=== PATIENT | female | born 1945 | race Caucasian/White ===

== ENCOUNTER → 2020-08-18 14:56 | Outpatient (CLI) | payer OTHER, SELFPAY ==
[2020-08-18 15:52] LABS: Add Manual Diff / Slide Review NO; Basophils Absolute Auto 0 /uL (0-100); Basophils Percent Auto 0.7 % (0-2); Eosinophils Absolute Auto 200 /uL (0-450); Eosinophils Percent Auto 2.9 % (2-4); Hematocrit 42.9 % (36-46); Hemoglobin 14.6 g/dL (12.0-16.0); Lymphocytes Absolute Auto 1900 /uL (1100-4500); Lymphocytes Percent Auto 27.2 % (25-40); Mean Corpuscular Hemoglobin 29.2 PG (26-34); Mean Corpuscular Volume 85.9 fL (80-100); Monocytes Absolute Auto 600 /uL (0-900); Monocytes Percent Auto 9.1 % (3-14); Neutrophils Absolute Auto 4200 /uL (1500-7000); Neutrophils Percent Auto 60.1 % (50-75); Platelet Count 227 X10^3/uL (150-400); Red Blood Cell Count 4.99 X10^6/uL (4.0-5.2); Red Cell Distribution Width 12.7 % (11.6-14.8)
[2020-08-18 16:28] LABS: Alanine Aminotransferase 36 IU/L (<35); Albumin 4.5 g/dL (3.5-5.0); Albumin Globulin Ratio 1.6 (1.0-2.8); Alkaline Phosphatase 96 U/L (38-126); Aspartate Aminotransferase 39 IU/L (14-36); BUN Creatinine Ratio 31.1 (6-22); Blood Urea Nitrogen 23 mg/dL (7-17); Calcium 9.9 mg/dL (8.4-10.2); Carbon Dioxide 27 mmol/L (22-32); Chloride 104 mmol/L (98-107); Cholesterol 263 mg/dL (140-199); Estimated Glomerular Filt Rate > 60.0 mL/min (>60); Globulin 2.8 g/dL (1.7-4.1); Glucose 101 mg/dL (80-110); HDL Cholesterol 58 mg/dL (40-60); HEMOLYSIS < 15 (0-50); LDL Cholesterol Calculated 170 mg/dL (<100); Potassium 4.6 mmol/L (3.4-5.1); Sodium 137 mmol/L (137-145); Total Protein 7.3 g/dL (6.3-8.2); Triglycerides 176 mg/dL (35-150)
[2020-08-18 16:52] LABS: TSH w/ Reflex to FT4 2.05 uIU/mL (0.47-4.68)
[2020-08-21 21:36] LABS: QuantiFERON Mitogen Value 9.57 IU/mL (.); QuantiFERON Nil Value 0.19 IU/mL (.); QuantiFERON TB Gold Plus Negative (Negative); QuantiFERON TB1 Ag Value 0.36 IU/mL (.); QuantiFERON TB2 Ag Value 0.45 IU/mL (.)
== END ==
PROVIDERS: PCP Family Medicine; Referring Provider Family Medicine; Visit Provider Family Medicine
DX: E78.2 Mixed hyperlipidemia (principal); R00.2 Palpitations; E78.5 Hyperlipidemia, unspecified; G47.33 Obstructive sleep apnea (adult) (pediatric); M19.011 Primary osteoarthritis, right shoulder; Z02.1 Encounter for pre-employment examination
CPT/HCPCS: 36415; 80053; 80061; 84443; 85025; 86480

== ENCOUNTER → 2020-09-01 12:59 | Outpatient (CLI) | payer OTHER, SELFPAY ==
--- NOTE | 2020-09-29 11:01 | PM.CARDMON.1 ---
[employer] Report Referral & Results Date Patient Seen: 09/01/20 Requesting provider: Tobias Power Indication: Palpitations Duration of monitoring (days): 14 Diary information: There were 2 patient diary entries These to patient events were associated with (within 45 seconds) sinus rhythm only Data: Minimum heart rate identified was 47 beats per minute at 05:53 on 09/11/2020 Maximum sinus heart rate was 132 beats per minute at 17:09 on 09/05/2020 Maximum overall heart rate was 187 beats per minute at 12:01 on 09/08/2020 during a 6 beat run of SVT Less than 1% of identified beats were ventricular or supraventricular ectopic in origin, which would classify them as rare. There were 22 runs of SVT the fastest being a 6 beat run noted above, the longest lasting 14 beats at a rate of 114 beats per minute which suggest more atrial tachycardia rather than true SVT Impression: Essentially normal 14 day ham stringer showing rare PVCs rare PACs and very rare very brief runs of SVT Patient reported symptoms are not connect with any dysrhythmia of any sort based on this study
== END ==
PROVIDERS: PCP Family Medicine; Referring Provider Family Medicine; Visit Provider Family Medicine
DX: R00.2 Palpitations (principal)
CPT/HCPCS: 93246; 93248

== ENCOUNTER → 2021-03-07 09:06 | Outpatient (CLI) | payer OTHER, SELFPAY ==
[2021-03-07 11:05] LABS: Alanine Aminotransferase 30 IU/L (<35); Albumin Globulin Ratio 1.5 (1.0-2.8); Alkaline Phosphatase 107 U/L (38-126); Aspartate Aminotransferase 33 IU/L (14-36); BUN Creatinine Ratio 24.3 (6-22); Bilirubin Total 0.9 mg/dL (0.2-1.3); Blood Urea Nitrogen 18 mg/dL (7-17); Calcium 9.2 mg/dL (8.4-10.2); Carbon Dioxide 29 mmol/L (22-32); Chloride 104 mmol/L (98-107); Cholesterol 212 mg/dL (140-199); Estimated Glomerular Filt Rate > 60.0 mL/min (>60); Globulin 2.6 g/dL (1.7-4.1); Glucose 113 mg/dL (80-110); HDL Cholesterol 54 mg/dL (40-60); HEMOLYSIS < 15 (0-50); LDL Cholesterol Calculated 138 mg/dL (<100); Potassium 4.7 mmol/L (3.4-5.1); Sodium 139 mmol/L (137-145); Total Protein 6.6 g/dL (6.3-8.2); Triglycerides 100 mg/dL (35-150)
== END ==
PROVIDERS: PCP Family Medicine; Referring Provider Family Medicine; Visit Provider Family Medicine
DX: E78.2 Mixed hyperlipidemia (principal); R74.8 Abnormal levels of other serum enzymes
CPT/HCPCS: 36415; 80053; 80061

== ENCOUNTER → 2021-04-21 16:34 | Outpatient (CLI) | payer OTHER, SELFPAY ==
[2021-04-21 17:26] LABS: COVID19 -Nasal RAPID Negative (Negative)
== END ==
PROVIDERS: PCP Family Medicine; Visit Provider Nurse Practitioner
DX: Z20.822 Contact with and (suspected) exposure to COVID-19 (principal)
CPT/HCPCS: 87635

== ENCOUNTER → 2022-01-09 14:50 | Outpatient (CLI) | payer OTHER, SELFPAY ==
[2022-01-09 15:55] LABS: Add Manual Diff / Slide Review NO; Basophils Absolute Auto 0 /uL (0-100); Basophils Percent Auto 0.5 % (0-2); Eosinophils Absolute Auto 100 /uL (0-450); Eosinophils Percent Auto 1.4 % (2-4); Hematocrit 40.1 % (36-46); Hemoglobin 13.8 g/dL (12.0-16.0); Lymphocytes Absolute Auto 1900 /uL (1100-4500); Lymphocytes Percent Auto 26.1 % (25-40); Mean Corpuscular HGB Conc 34.5 % (30-36); Mean Corpuscular Hemoglobin 28.9 PG (26-34); Mean Corpuscular Volume 83.8 fL (80-100); Monocytes Absolute Auto 600 /uL (0-900); Monocytes Percent Auto 8.6 % (3-14); Neutrophils Absolute Auto 4500 /uL (1500-7000); Neutrophils Percent Auto 63.4 % (50-75); Platelet Count 226 X10^3/uL (150-400); Red Blood Cell Count 4.78 X10^6/uL (4.0-5.2); Red Cell Distribution Width 13.9 % (11.6-14.8); White Blood Cell Count 7.1 X10^3/uL (4.5-11.0)
[2022-01-09 16:22] LABS: Alanine Aminotransferase 23 IU/L (<35); Albumin 4.3 g/dL (3.5-5.0); Albumin Globulin Ratio 1.5 (1.0-2.8); Alkaline Phosphatase 85 U/L (38-126); Aspartate Aminotransferase 31 IU/L (14-36); BUN Creatinine Ratio 17.3 (6-22); Bilirubin Total 0.9 mg/dL (0.2-1.3); Blood Urea Nitrogen 13 mg/dL (7-17); Calcium 8.8 mg/dL (8.4-10.2); Carbon Dioxide 26 mmol/L (22-32); Chloride 105 mmol/L (98-107); Cholesterol 215 mg/dL (140-199); Estimated Glomerular Filt Rate > 60 mL/min (>60); Globulin 2.8 g/dL (1.7-4.1); Glucose 113 mg/dL (80-110); HDL Cholesterol 49 mg/dL (40-60); HEMOLYSIS < 15 (0-50); LDL Cholesterol Calculated 127 mg/dL (<100); Potassium 3.9 mmol/L (3.4-5.1); Sodium 139 mmol/L (137-145); Total Protein 7.1 g/dL (6.3-8.2); Triglycerides 196 mg/dL (35-150)
[2022-01-09 16:56] LABS: TSH w/ Reflex to FT4 2.13 uIU/mL (0.47-4.68)
== END ==
PROVIDERS: PCP Family Medicine; Referring Provider Family Medicine; Visit Provider Family Medicine
DX: Z13.820 Encounter for screening for osteoporosis (principal); M81.0 Age-related osteoporosis without current pathological fracture; Z78.0 Asymptomatic menopausal state; E78.5 Hyperlipidemia, unspecified; G47.33 Obstructive sleep apnea (adult) (pediatric); R73.9 Hyperglycemia, unspecified; E78.2 Mixed hyperlipidemia; R74.8 Abnormal levels of other serum enzymes
CPT/HCPCS: 36415; 77080; 80053; 80061; 84443; 85025

== ENCOUNTER → 2022-03-29 13:57 | Outpatient (CLI) | payer OTHER, SELFPAY ==
--- NOTE | 2022-03-29 | DI.NM.S_ITS ---
PROCEDURE: NM EXERCISE TREADMILL NON NUC COMPARISON: None. INDICATIONS: Family history of ischemic heart disease FINDINGS: Rest ECG sinus rhythm. Romie protocol 6:00, maximum heart rate 154 bpm (105% peak predicted), maximum blood pressure 222/70, 7.0 METS, SHANIQUE -11%. Stress ECG sinus tachycardia, no ST segment changes, occasional PACs and PVCs noted in recovery. The patient did not complain of chest pain during exercise however did report 3 out of 10 chest pain approximately 4 minutes into recovery which lasted 6 minutes. IMPRESSION: No evidence of exercise-induced ischemia. Rare PACs and PVCs in recovery. Hypertensive response to exercise. Good exercise capacity. Patient reported post exercise chest discomfort. Dictated by: Ana Contreras D.O. on 04/02/2022 at 16:57 Approved by: Ana Contreras D.O. on 04/02/2022 at 17:02
[2022-03-29 14:36] LABS: COVID19 -Nasal RAPID Negative (Negative)
== END ==
PROVIDERS: PCP Family Medicine; Referring Provider Internal Medicine Cardiovascular Disease; Visit Provider Internal Medicine Cardiovascular Disease
DX: R07.89 Other chest pain; Z82.49 Family history of ischemic heart disease and other diseases of the circulatory system; E78.5 Hyperlipidemia, unspecified; Z20.822 Contact with and (suspected) exposure to COVID-19; Z13.6 Encounter for screening for cardiovascular disorders
CPT/HCPCS: 87635; 93017

== ENCOUNTER → 2022-05-24 15:37 | Outpatient (CLI) | payer OTHER, SELFPAY ==
[2022-05-24 17:37] LABS: Cholesterol 225 mg/dL (140-199); HDL Cholesterol 51 mg/dL (40-60); LDL Cholesterol Calculated 147 mg/dL (<100); Triglycerides 136 mg/dL (35-150)
== END ==
PROVIDERS: PCP Family Medicine; Referring Provider Internal Medicine Cardiovascular Disease; Visit Provider Internal Medicine Cardiovascular Disease
DX: E78.5 Hyperlipidemia, unspecified (principal)
CPT/HCPCS: 36415; 80061

== ENCOUNTER → 2023-04-30 09:48 | Outpatient (CLI) | payer OTHER, SELFPAY ==
[2023-04-30 11:15] LABS: Add Manual Diff / Slide Review NO; Basophils Absolute Auto 0 /uL (0-100); Basophils Percent Auto 0.8 % (0-2); Eosinophils Absolute Auto 100 /uL (0-450); Eosinophils Percent Auto 1.9 % (2-4); Hematocrit 41.5 % (36-46); Lymphocytes Absolute Auto 1500 /uL (1100-4500); Lymphocytes Percent Auto 26.4 % (25-40); Mean Corpuscular HGB Conc 33.8 % (30-36); Mean Corpuscular Hemoglobin 28.8 PG (26-34); Mean Corpuscular Volume 85.2 fL (80-100); Monocytes Absolute Auto 500 /uL (0-900); Monocytes Percent Auto 7.8 % (3-14); Neutrophils Absolute Auto 3700 /uL (1500-7000); Neutrophils Percent Auto 63.1 % (50-75); Platelet Count 230 X10^3/uL (150-400); Red Blood Cell Count 4.87 X10^6/uL (4.0-5.2); Red Cell Distribution Width 12.6 % (11.6-14.8); White Blood Cell Count 5.8 X10^3/uL (4.5-11.0)
[2023-04-30 11:38] LABS: Alanine Aminotransferase 28 IU/L (<35); Albumin 4.1 g/dL (3.5-5.0); Albumin Globulin Ratio 1.3 (1.0-2.8); Alkaline Phosphatase 90 U/L (38-126); Aspartate Aminotransferase 29 IU/L (14-36); BUN Creatinine Ratio 27.3 (6-22); Bilirubin Total 1.2 mg/dL (0.2-1.3); Blood Urea Nitrogen 18 mg/dL (7-17); Calcium 9.5 mg/dL (8.4-10.2); Carbon Dioxide 25 mmol/L (22-32); Chloride 105 mmol/L (98-107); Cholesterol 146 mg/dL (140-199); Estimated Glomerular Filt Rate > 60 mL/min (>60); Globulin 3.1 g/dL (1.7-4.1); Glucose 129 mg/dL (80-110); HDL Cholesterol 45 mg/dL (40-60); HEMOLYSIS < 15 (0-50); LDL Cholesterol Calculated 83 mg/dL (<100); Potassium 4.2 mmol/L (3.4-5.1); Sodium 139 mmol/L (137-145); Total Protein 7.2 g/dL (6.3-8.2); Triglycerides 92 mg/dL (35-150)
[2023-04-30 12:17] LABS: TSH w/ Reflex to FT4 2.07 uIU/mL (0.47-4.68)
== END ==
PROVIDERS: PCP Family Medicine; Referring Provider Family Medicine; Visit Provider Family Medicine
DX: R73.9 Hyperglycemia, unspecified (principal); E78.2 Mixed hyperlipidemia; D48.5 Neoplasm of uncertain behavior of skin; Z78.9 Other specified health status
CPT/HCPCS: 36415; 80053; 80061; 83036; 84443; 85025

== ENCOUNTER → 2023-07-12 10:05 | Outpatient (CLI) | payer OTHER, SELFPAY ==
--- NOTE | 2023-07-12 10:06 | DI.CT.S_ITS ---
PROCEDURE: CT SINUS SCREEN WO CON INDICATIONS: Chronic pansinusitis TECHNIQUE: Noncontrast 3.0 mm axial images acquired from the frontal sinuses to the mid-sella, with coronal and sagittal reformats. For radiation dose reduction, the following was used: automated exposure control, adjustment of mA and/or kV according to patient size. COMPARISON: None. FINDINGS: Image quality: Excellent. Maxillary Sinuses: No bony remodeling or destruction. Mild mucosal thickening can be seen within the inferior maxillary sinuses. Ethmoid Air Cells: No bony remodeling or destruction. Sinuses are clear. Sphenoid Sinuses: No bony remodeling or destruction. Sinuses are clear. Frontal Sinuses: No bony remodeling or destruction. Sinuses are clear. Ostiomeatal Complexes: Ostiomeatal complexes are patent, yet they are constitutionally narrowed. No Don cells. Miscellaneous: Visualized intra-orbital contents are normal. No kristin bullosa or paradoxical turbinate curvature. No nasal septal deviation. IMPRESSION: Mild focal mucosal thickening seen within the inferior maxillary sinuses. Constitutionally narrowed ostiomeatal complexes. Dictated by: Ildefonso Duran M.D. on 07/12/2023 at 11:02 Approved by: Ildefonso Duran M.D. on 07/12/2023 at 11:03
== END ==
LOC: CT 10:05
PROVIDERS: PCP Family Medicine; Referring Provider Otolaryngology; Visit Provider Otolaryngology
DX: J32.4 Chronic pansinusitis (principal); R09.82 Postnasal drip
CPT/HCPCS: 70486

== ENCOUNTER 2024-03-21 15:45 | Emergency (ER) | payer OTHER, SELFPAY ==
[2024-03-21 15:48] VITALS: BP 185/81; PULSE 70; RESP 16; TEMP 36.7; O2SAT 98; BMI 28.8
--- NOTE | 2024-03-21 16:54 | DI.RAD.S_ITS ---
PROCEDURE: XR HIP W PEL IF DONE LT 2V INDICATIONS: L hip pain TECHNIQUE: 3 views of the hip were acquired. COMPARISON: None. FINDINGS: Bones: No fractures or dislocations. No suspicious bony lesions. The visualized pelvic ring appears intact. Soft tissues: No suspicious soft tissue calcifications or masses. IMPRESSION: Moderate bilateral hip joint space narrowing. No fracture Approved by: Julio C Mcclain M.D. on 03/21/2024 at 16:46
--- NOTE | 2024-03-21 16:54 | DI.RAD.S_ITS ---
PROCEDURE: XR LUMBAR SPINE 2-3V INDICATIONS: Lumbar Radiculopathy TECHNIQUE: 3 views of the lumbar spine were acquired. COMPARISON: None. FINDINGS: Bones: 5 [id number] vertebrae are present. There is normal bony alignment. No vertebral body compression fractures. No suspicious bony lesions. Convex left lumbar scoliosis. Generalized decreased osseous mineralization noted. Disc space narrowing and hypertrophic facet joints and lower lumbar spine. Atherosclerotic calcification in the abdominal aorta noted without evidence of aneurysm. Soft tissues: Overlying bowel gas pattern is normal. No suspicious soft tissue calcifications. IMPRESSION: Degenerative disc disease, arthropathy and osteopenia. No fracture or traumatic malalignment. Approved by: Julio C Mcclain M.D. on 03/21/2024 at 16:47
[2024-03-21] MEDS: KETOROLAC 30 MG/ML VIAL IM (17:06)
[2024-03-21 17:37] LABS: Add Manual Diff / Slide Review NO; Basophils Absolute Auto 0 /uL (0-100); Basophils Percent Auto 0.3 % (0-2); Eosinophils Absolute Auto 100 /uL (0-450); Hematocrit 44.4 % (36-46); Hemoglobin 14.8 g/dL (12.0-16.0); Lymphocytes Absolute Auto 2100 /uL (1100-4500); Lymphocytes Percent Auto 21.7 % (25-40); Mean Corpuscular HGB Conc 33.3 % (30-36); Mean Corpuscular Hemoglobin 28.8 PG (26-34); Mean Corpuscular Volume 86.5 fL (80-100); Monocytes Absolute Auto 700 /uL (0-900); Monocytes Percent Auto 7.5 % (3-14); Neutrophils Absolute Auto 6700 /uL (1500-7000); Neutrophils Percent Auto 69.5 % (50-75); Platelet Count 242 X10^3/uL (150-400); Red Blood Cell Count 5.13 X10^6/uL (4.0-5.2); Red Cell Distribution Width 13.4 % (11.6-14.8); White Blood Cell Count 9.6 X10^3/uL (4.5-11.0)
[2024-03-21 17:49] LABS: Alanine Aminotransferase 47 IU/L (<35); Albumin 4.6 g/dL (3.5-5.0); Albumin Globulin Ratio 1.5 (1.0-2.8); Alkaline Phosphatase 104 U/L (38-126); Aspartate Aminotransferase 39 IU/L (14-36); BUN Creatinine Ratio 21.2 (6-22); Bilirubin Total 1.4 mg/dL (0.2-1.3); Blood Urea Nitrogen 18 mg/dL (7-17); Calcium 9.3 mg/dL (8.4-10.2); Carbon Dioxide 26 mmol/L (22-32); Chloride 105 mmol/L (98-107); Creatine Kinase 92 U/L (30-135); Estimated Glomerular Filt Rate > 60 mL/min (>60); Glucose 107 mg/dL (80-110); HEMOLYSIS < 15 (0-50); Potassium 4.6 mmol/L (3.4-5.1); Sodium 139 mmol/L (137-145); Total Protein 7.6 g/dL (6.3-8.2)
--- NOTE | 2024-03-21 17:51 | PC.NURSE ---
Pt endorses transient numbness in bilateral feet. Denies numbness currently.
--- NOTE | 2024-03-21 18:17 | ED.EXTPRO ---
HPI - Extremity Problem <Robin White PA-C - Last Filed: 03/21/24 18:35> General Chief complaint: Extremity Problem,Nontraumatic Stated complaint: left leg pain, cant stand Time Seen by Provider: 03/21/24 16:10 Source: patient Mode of arrival: Wheelchair History of Present Illness HPI Narrative: This patient is a 78-year-old female that over the last 2 weeks has been experiencing left hip discomfort. She was apparently in her car today when the pain worsened and felt like a muscle spasm. Patient states that she had to drive to a friend's house to help her get out of the car. The patient has not seen her PCP for today's chief complaint. She denies night sweats, fever, chills, dysuria, bowel or bladder incontinence, blunt force trauma, falls worsening pain. Patient also denies chest pain and shortness of breath. No medications or other treatments have been tried for this. She has not scheduled an appointment to see her PCP for today's complaint. Patient states that she, ?can not stand? however, she actually can stand there is just increased pain with weight-bearing over the posterior aspect of the left thigh. Related Data Home Medications Medication Instructions Recorded Confirmed ResMed AirSense 11 Auto 03/15/22 05/06/23 Previous Rx's Medication Instructions Recorded diazepam 2 mg tablet (Valium) 2 mg PO BID PRN anxiety #10 tabs 05/06/23 ezetimibe 10 mg tablet (Zetia) 10 mg PO DAILY #90 tabs 05/16/23 hydrocodone 5 mg-acetaminophen 325 1 tab PO Q8H PRN pain #15 tabs 03/21/24 mg tablet meloxicam 7.5 mg tablet 7.5 mg PO BID PRN pain #20 tabs 03/21/24 tizanidine 4 mg tablet 4 mg PO Q8H PRN muscle spasticity 03/21/24 #20 tabs Allergies Allergy/AdvReac Type Severity Reaction Status Date / Time atorvastatin AdvReac Intermediate Muscle Pain Verified 03/21/24 15:48 rosuvastatin AdvReac Intermediate constipatio Verified 03/21/24 15:48 n Review of Systems <Robin White PA-C - Last Filed: 03/21/24 18:35> Review of Systems Narrative: General: See HPI MSK: See HPI All other review of systems have been reviewed and are ultimately negative unless otherwise stated in the HPI Patient History <Robin White PA-C - Last Filed: 03/21/24 18:35> Medical History Trigger finger, right Acute bronchitis Hyperglycemia Hyperlipidemia Obstructive sleep apnea Bilateral plantar fasciitis Primary osteoarthritis, right shoulder Social History Smoking Status: Never smoker Smoking Status: Never smoker alcohol intake frequency: a few times a week Substance Use Type: does not use Exam <Robin White PA-C - Last Filed: 03/21/24 18:35> Initial Vital Signs Initial Vital Signs: Vital Signs Temperature 98.0 F 03/21/24 15:48 Pulse Rate 70 03/21/24 15:48 Respiratory Rate 16 03/21/24 15:48 Blood Pressure 185/81 H 03/21/24 15:48 Pulse Oximetry 98 03/21/24 15:48 Oxygen Delivery Method Room Air 03/21/24 15:48 Const General: cooperative, healthy appearing, comfortable, well developed and well groomed Orientation: Orientation [facility] Head: normal to inspection, normocephalic and atraumatic Ears: hearing grossly normal bilaterally and external ears normal Nose: external nose normal and nares normal Eyes General: Yes appearance normal, both eyes and all related structures Neck Neck: normal visual inspection, full ROM and no meningeal signs Resp Effort & Inspection: normal respiratory effort and able to speak in complete sentences Cardio Rate: regular rate Rhythm: regular rhythm Heart Sounds: S1 normal and S2 normal Back/Spine/Pelvis Other: Patient has tense paralumbar musculature noted at L4-5 and S1. She has no SI joint tenderness noted. She has a positive straight leg raise of the left lower extremity. She has no tenderness to palpation over the left greater trochanteric bursa. There is tenderness to palpation over the left posterior thigh with spasm. Skin General: no rashes or lesions noted, elasticity normal and turgor normal Neuro General: patient alert, patient awake, patient oriented x3, moves all extremities and deep tendon reflexes 2+ bilaterally Extrem General: normal to inspection, full ROM, capillary refill normal and normal exam except as noted Psych Appearance: grossly normal and well kempt <Briseyda Downing DO - Last Filed: 03/22/24 08:00> Initial Vital Signs Initial Vital Signs: Vital Signs Temperature 98.0 F 03/21/24 15:48 Pulse Rate 70 03/21/24 15:48 Respiratory Rate 16 03/21/24 15:48 Blood Pressure 185/81 H 03/21/24 15:48 Pulse Oximetry 98 03/21/24 15:48 Oxygen Delivery Method Room Air 03/21/24 15:48 Course <Robin White PA-C - Last Filed: 03/21/24 18:35> Course Course Narrative: Patient seen and examined. She was given Toradol 30 mg IM. Labs were ordered to rule out any other etiologies. Her CBC, CMP, CK-MB were unremarkable. I do not believe this is an infectious process such as a deep space abscess, necrotizing fasciitis or cauda equina syndrome. The patient denies saddle anesthesia as well as bowel or bladder incontinence. This has been ongoing for approximately 2 weeks and worsened today. She has not seen her PCP for today's chief complaint. So do not believe this is rhabdomyolysis. The patient states that she is very active. She is neurologically distally intact. The x-rays of the L-spine revealed degenerative disc disease in the left hip/pelvis x-ray series revealed narrowing of the hip joints. This was according to the radiologist. The patient will be prescribed a short course of [place], tizanidine as well as meloxicam in which she will receive 1 dose of tizanidine prior to discharge. I offered the patient a Social Work consult in which she declined. I have advised the patient to follow up with her PCP in 2 days as she may require outpatient physical therapy and/or an MRI of the L-spine and possible hip. Patient understands the treatment plan. There are no additional questions at the time of discharge and she will follow up as requested. As always, patient was advised to return here immediately if worse. Orders Ordered: Discontinued Medications Ketorolac Tromethamine (Ketorolac 30 Mg/Ml Vial) 30 mg IM NOW ONE Stop: 03/21/24 16:55 Last Admin: 03/21/24 17:06 Dose: 30 mg Documented By: SPF Tizanidine HCl (Tizanidine 4 Mg Tablet) 4 mg PO NOW ONE Stop: 03/21/24 18:12 Last Admin: 03/21/24 18:39 Dose: 4 mg Documented By: SPF Vital Signs Vital signs: Vital Signs - 8 hr 03/21/24 15:48 Temperature 98.0 F Pulse Rate 70 Respiratory Rate 16 Blood Pressure 185/81 H Pulse Oximetry 98 Oxygen Delivery Method Room Air <Briseyda Downing DO - Last Filed: 03/22/24 08:00> Orders Ordered: Discontinued Medications Ketorolac Tromethamine (Ketorolac 30 Mg/Ml Vial) 30 mg IM NOW ONE Stop: 03/21/24 16:55 Last Admin: 03/21/24 17:06 Dose: 30 mg Documented By: SPF Tizanidine HCl (Tizanidine 4 Mg Tablet) 4 mg PO NOW ONE Stop: 03/21/24 18:12 Last Admin: 03/21/24 18:39 Dose: 4 mg Documented By: SPF Vital Signs Vital signs: Vital Signs - 8 hr 03/21/24 15:48 Temperature 98.0 F Pulse Rate 70 Respiratory Rate 16 Blood Pressure 185/81 H Pulse Oximetry 98 Oxygen Delivery Method Room Air MDM - Extremity (Nontraumatic) <Robin White PA-C - Last Filed: 03/21/24 18:35> Differential Diagnosis Differential diagnosis: Likely other (See above) Medical Records Attestation: I reviewed the patient's medical records. Lab Data Attestation: I reviewed the patient's lab results. 03/21/24 17:25 03/21/24 17:25 Labs: Lab Results 03/21/24 Range/Units 17:25 WBC 9.6 (4.5-11.0) X10^3/uL RBC 5.13 (4.0-5.2) X10^6/uL Hgb 14.8 (12.0-16.0) g/dL Hct 44.4 (36-46) % MCV 86.5 (80-100) fL MCH 28.8 (26-34) PG MCHC 33.3 (30-36) % RDW 13.4 (11.6-14.8) % Plt Count 242 (150-400) X10^3/uL Neut % (Auto) 69.5 (50-75) % Lymph % (Auto) 21.7 L (25-40) % [place] % (Auto) 7.5 (3-14) % Eos % (Auto) 1.0 L (2-4) % Baso % (Auto) 0.3 (0-2) % Neut # (Auto) 6700 (3476-0087) /uL Lymph # (Auto) 2100 (9316-3531) /uL [place] # (Auto) 700 (0-900) /uL Eos # (Auto) 100 (0-450) /uL Baso # (Auto) 0 (0-100) /uL Sodium 139 (137-145) mmol/L Potassium 4.6 (3.4-5.1) mmol/L Chloride 105 (98-107) mmol/L Carbon Dioxide 26 (22-32) mmol/L BUN 18 H (7-17) mg/dL Creatinine 0.85 (0.52-1.04) mg/dL Estimated GFR > 60 (>60) mL/min BUN/Creatinine Ratio 21.2 (6-22) Glucose 107 (80-110) mg/dL Calcium 9.3 (8.4-10.2) mg/dL Total Bilirubin 1.4 H (0.2-1.3) mg/dL AST 39 H (14-36) IU/L ALT 47 H (<35) IU/L Alkaline Phosphatase 104 (38-126) U/L Total Creatine Kinase 92 (30-135) U/L Total Protein 7.6 (6.3-8.2) g/dL Albumin 4.6 (3.5-5.0) g/dL Globulin 3.0 (1.7-4.1) g/dL Albumin/Globulin Ratio 1.5 (1.0-2.8) <Briseyda Downing, DO - Last Filed: 03/22/24 08:00> Lab Data Labs: Lab Results 03/21/24 Range/Units 17:25 WBC 9.6 (4.5-11.0) X10^3/uL RBC 5.13 (4.0-5.2) X10^6/uL Hgb 14.8 (12.0-16.0) g/dL Hct 44.4 (36-46) % MCV 86.5 (80-100) fL MCH 28.8 (26-34) PG MCHC 33.3 (30-36) % RDW 13.4 (11.6-14.8) % Plt Count 242 (150-400) X10^3/uL Neut % (Auto) 69.5 (50-75) % Lymph % (Auto) 21.7 L (25-40) % [place] % (Auto) 7.5 (3-14) % Eos % (Auto) 1.0 L (2-4) % Baso % (Auto) 0.3 (0-2) % Neut # (Auto) 6700 (4936-3505) /uL Lymph # (Auto) 2100 (6843-6371) /uL [place] # (Auto) 700 (0-900) /uL Eos # (Auto) 100 (0-450) /uL Baso # (Auto) 0 (0-100) /uL Sodium 139 (137-145) mmol/L Potassium 4.6 (3.4-5.1) mmol/L Chloride 105 (98-107) mmol/L Carbon Dioxide 26 (22-32) mmol/L BUN 18 H (7-17) mg/dL Creatinine 0.85 (0.52-1.04) mg/dL Estimated GFR > 60 (>60) mL/min BUN/Creatinine Ratio 21.2 (6-22) Glucose 107 (80-110) mg/dL Calcium 9.3 (8.4-10.2) mg/dL Total Bilirubin 1.4 H (0.2-1.3) mg/dL AST 39 H (14-36) IU/L ALT 47 H (<35) IU/L Alkaline Phosphatase 104 (38-126) U/L Total Creatine Kinase 92 (30-135) U/L Total Protein 7.6 (6.3-8.2) g/dL Albumin 4.6 (3.5-5.0) g/dL Globulin 3.0 (1.7-4.1) g/dL Albumin/Globulin Ratio 1.5 (1.0-2.8) Discharge Plan Departure Patient Disposition: Home Clinical Impression: Acute left lumbar radiculopathy Hip osteoarthritis Qualifiers: Osteoarthritis type: primary Laterality: bilateral Qualified Code(s): M16.0 - Bilateral primary osteoarthritis of hip Instructions: Lumbar Radiculopathy, DI for Hip Pain Activity Restrictions/Additional Instructions: Start the medications today as prescribed Apply moist heat to the affected areas 10 minutes at a time 5 times a day Follow up with your PCP on Saturday to discuss your concerns for today's ER visit You will likely require physical therapy as well as an outpatient MRI Return here for any new, emergent concerns or if you worsen in any way Prescriptions: New tizanidine 4 mg tablet 4 mg PO Q8H PRN (Reason: muscle spasticity) Qty: 20 0RF hydrocodone-acetaminophen 5-325 mg tablet 1 tab PO Q8H PRN (Reason: pain) Qty: 15 0RF meloxicam 7.5 mg tablet 7.5 mg PO BID PRN (Reason: pain) Qty: 20 0RF No Action ezetimibe [Zetia] 10 mg tablet 10 mg PO DAILY Qty: 90 3RF diazepam [Valium] 2 mg tablet 2 mg PO BID PRN (Reason: anxiety) Qty: 10 0RF (DME) ResMed AirSense 11 Auto See Rx Instructions .Route .MEDSUPPLY Rx Instructions: Pressure: 6-10 DME: [employer] Set up: 2.2.22 Referrals: Tobias Power MD [Primary Care Provider] - Stand Alone Forms: Patient Portal/API ED Sign-out <Briseyda Downing DO - Last Filed: 03/22/24 08:00> Cosign ED Attending Cosjonathonature Attestation: I was available for consultation.
[2024-03-21] MEDS: TIZANIDINE 4 MG TABLET PO (18:39)
[2024-03-21 18:57] VITALS: BP 167/72; PULSE 63; RESP 18; O2SAT 98
== END 2024-03-21 18:58 | disposition home or self-care (01) ==
PROVIDERS: Emergency Provider Physician Assistant; PCP Family Medicine
DX: M54.16 Radiculopathy, lumbar region (principal); M16.0 Bilateral primary osteoarthritis of hip
CPT/HCPCS: 72100; 73502; 80053; 82550; 85025; 96372; 99284; J1885

== ENCOUNTER → 2024-03-25 14:14 | Outpatient (CLI) | payer OTHER, SELFPAY ==
[2024-03-25 16:26] LABS: Hemoglobin A1C% w Est Avg Glu 6.3 % (4.0-6.0)
== END ==
PROVIDERS: PCP Family Medicine; Referring Provider Physician Assistant; Visit Provider Physician Assistant
DX: M16.9 Osteoarthritis of hip, unspecified (principal); M54.16 Radiculopathy, lumbar region
CPT/HCPCS: 36415; 83036

== ENCOUNTER → 2024-03-30 14:49 | Outpatient (CLI) | payer OTHER, SELFPAY ==
--- NOTE | 2024-03-30 14:50 | DI.RAD.S_ITS ---
PROCEDURE: XR KNEE LT 3V INDICATIONS: left knee pain >2 weeks TECHNIQUE: 3 views of the knee were acquired. COMPARISON: None. FINDINGS: Bones: There are no osseous abnormalities. Joints: The tibialfemoral and patellofemoral joints show mild degenerative change. There is chondrocalcinosis of the menisci. No definite effusion. Soft tissues: Normal IMPRESSION: Mild degeneration. Chondrocalcinosis of the menisci.. Dictated by: Oli Edwards M.D. on 03/31/2024 at 10:50 Approved by: Oli Edwards M.D. on 03/31/2024 at 10:51
== END ==
PROVIDERS: PCP Family Medicine; Referring Provider Family Medicine; Visit Provider Family Medicine
DX: M11.262 Other chondrocalcinosis, left knee (principal); M25.562 Pain in left knee; M16.0 Bilateral primary osteoarthritis of hip; M54.16 Radiculopathy, lumbar region
CPT/HCPCS: 73562

== ENCOUNTER → 2024-05-06 15:48 | Outpatient (CLI) | payer OTHER, SELFPAY ==
--- NOTE | 2024-05-11 14:29 | DIET.OUTPTC ---
Dietary Outpatient Consultation Note Consultation Date: 05/06/2024 Assessment: 78 y F referred to dietitian for pre-diabetes R73.03. Elle has tried various weight loss eating styles in past - waxes and wanes in diet and dietary patterns, with most recent being inter. fasting that resulted in 13 lb weight loss. However, over this summer, was with her family and noticed regain of 8 lb weight associated with change in eating style i.e going out to eat more. Has maintained a ~2-4% loss. Wants to continue to lose weight to feel more comfortable. Is interested in short term weight loss medication. Encouraged pt to discuss with PCP at next appt in 1 month to find best option. Reports has had preDM for many years. Most recent A1c% is 6.3. Pt wants to find a balance between sustainable eating for health to reduce cardiovascular risk factors and maintaining a good quality of life. Notes has some constipation, but has BM within 3 days. Reports has tried everything to alleviate constipation with no success - including fiber, movement, fiber supplement, laxative, and fluid. Diet recall: various day by day B-/ pear and muffin L-cheese and turkey sandwich D-homemade chicken noodle soup Ht: 5 ft 6 in Wt: 184 lb BMI: 29.7 UBW: 187 lb on 05/06/23 Nutrition Diagnosis: Nutrition related knowledge deficit r/t needing eating reccs for preDM aeb pt assessment Interventions: Discussed the following topics and provided appropriate handouts -Realistic weight loss goal for preventing/delaying diabetes and cardiovascular health - 5-7% -Healthy BMI for age -Reviewed relevant labs and meanings -CHO portions, CHO consistent style of eating, pairing CHO, foods with CHO -Choosing balanced meals and portion sizing when out to eat -Fiber and adequate intake and sources -Intuitive eating Goals: -When out to eat, 3 serving CHO at meal -Split dessert portions -21 g fiber Monitoring/Evaluations: A1c Electronically Signed by: Mirian Unger 05/11/24 14:29 Clinical Dietitian [address] [id number]
== END ==
PROVIDERS: PCP Family Medicine; Referring Provider Family Medicine
DX: R73.03 Prediabetes (principal); Z71.3 Dietary counseling and surveillance; Z68.29 Body mass index [BMI] 29.0-29.9, adult
CPT/HCPCS: 97802

== ENCOUNTER 2024-09-02 09:17 | Emergency (ER) | payer MEDICARE, SELFPAY ==
[2024-09-02 09:21] VITALS: BP 210/85; PULSE 73; RESP 14; TEMP 36.6; O2SAT 97; BMI 29.8
[2024-09-02 09:27] VITALS: BP 201/83
[2024-09-02 09:30] VITALS: BP 167/73
--- NOTE | 2024-09-02 09:55 | ED_ITS ---
HPI - Skin/Abscess/Foreign Bdy General Chief complaint: Skin/Abscess/Foreign Body Stated complaint: rash all over body Time Seen by Provider: 09/02/24 09:46 Source: patient Mode of arrival: Ambulatory Limitations: no limitations History of Present Illness HPI narrative: Patient here for itchy rash on her face chest abdomen bilateral legs and forearms. None on the back. No tongue swelling the no trouble breathing no throat tightening. Patient denies denies any new products food drugs medications soaps detergents clothing. Patient has been on the same cholesterol medication for the past 1 year. No recent illness fever chills cough cold or congestion. Related Data Home Medications Medication Instructions Recorded Confirmed ResMed AirSense 11 Auto 03/15/22 05/28/24 Previous Rx's Medication Instructions Recorded ezetimibe 10 mg tablet (Zetia) 10 mg PO DAILY #90 tabs 06/01/24 diphenhydramine HCl 25 mg capsule 25 mg PO TID PRN allergic reaction 09/02/24 #20 caps famotidine 20 mg tablet 20 mg PO BID #14 tabs 09/02/24 methylprednisolone 4 mg tablets in See Rx Instructions PO .COMPLEX 09/02/24 a dose pack (Medrol (Antoine)) #21 ea Allergies Allergy/AdvReac Type Severity Reaction Status Date / Time atorvastatin AdvReac Intermediate Muscle Pain Verified 09/02/24 09:28 rosuvastatin AdvReac Intermediate constipatio Verified 09/02/24 09:28 n Review of Systems Review of Systems Narrative: GENERAL: Negative chills, fatigue, malaise, fever, sweats. HEENT: Negative sinus pain, ear pain, sore throat RESPIRATORY: Negative dyspnea, cough CARDIOVASCULAR: Negative chest pain, palpitations GASTROINTESTINAL: Negative vomiting, nausea, abdominal pain : Negative dysuria, frequency, hematuria MUSCULOSKELETAL: Negative muscle or bony pain SKIN: Positive rash, skin lesions NEUROLOGIC: Negative weakness, numbness ROS Unobtainable: All systems reviewed & are unremarkable except as noted in HPI and below Patient History Medical History Trigger finger, right Acute bronchitis Hyperglycemia Hyperlipidemia Obstructive sleep apnea Bilateral plantar fasciitis Primary osteoarthritis, right shoulder Social History Smoking Status: Never smoker Smoking Status: Never smoker alcohol intake frequency: a few times a week Exam Narrative Exam Narrative: GENERAL: in no distress, not toxic not dyspneic HEAD: Normocephalic. EYES: Pupils equal round ENT: Mucous membranes moist. No lesions rash on the lips or tongue or mouth. No tongue elevation or drooling. NECK: Trachea midline. No stridor CARDIOVASCULAR: Regular rate and rhythm RESPIRATORY: Clear to auscultation. Breath sounds equal bilaterally. No wheezes, rales, or rhonchi. GASTROINTESTINAL: Abdomen soft, non-tender EXTREMITIES: No gross deformities. BACK: No flank tenderness. NEURO: AOx4. Clear speech SKIN: Warm and dry, hives diffusely distributed bilateral upper thighs and lower legs and forearms and abdomen. None on the back. None on the palms of the hands. PSYCH: Not anxious, is cooperative Initial Vital Signs Initial Vital Signs: Vital Signs Temperature 97.9 F 09/02/24 09:21 Pulse Rate 73 09/02/24 09:21 Respiratory Rate 14 09/02/24 09:21 Blood Pressure 210/85 H 09/02/24 09:21 Pulse Oximetry 97 09/02/24 09:21 Oxygen Delivery Method Room Air 09/02/24 09:21 Course Vital Signs Vital signs: Vital Signs - 8 hr 09/02/24 09:21 09/02/24 09:27 09/02/24 09:30 Temperature 97.9 F Pulse Rate 73 Respiratory Rate 14 Blood Pressure 210/85 H 201/83 H 167/73 H Pulse Oximetry 97 Oxygen Delivery Method Room Air MDM - Skin/Abscess/Foreign Bdy [facility] Narrative Medical decision making narrative: Patient here for itchy rash on her face chest abdomen bilateral legs and forearms. None on the back. No tongue swelling the no trouble breathing no throat tightening. Patient denies denies any new products food drugs medications soaps detergents clothing. Patient has been on the same cholesterol medication for the past 1 year. No recent illness fever chills cough cold or congestion. After history and exam, exam is reassuring. No blood work or imaging indicated. [facility] Medical records reviewed: No recent visit for this complaint Differential considered: Includes but not limited to contact dermatitis allergic allergy viral exanthem Treatment:, none indicated here. Re-evaluations: 9:57 a.m.. Reviewed with patient exam findings and likely allergic reaction but unknown source at this time. She will stop her cholesterol medication for a few days to see if this will help. In the meantime she agrees with prescriptions provided. Discussion: Appropriate for discharge home. Exam is reassuring. Airway intact. No blood. Prescription for Medrol Dosepak Pepcid and Benadryl will be provided. She does not family doctor to follow up with. Return precautions reviewed airway intact. She desires discharge home Diagnosis: Allergic reaction Discharge Plan Departure Patient Disposition: Home Clinical Impression: Urticaria Instructions: DI for Hives Activity Restrictions/Additional Instructions: Your rash is likely allergic reaction. However at this time unknown source. 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 Please see your family doctor this week for re-evaluation. You may stop your for medication or we have days to see if this helps. Return if worse if any questions or concerns if any trouble breathing. Prescriptions: New famotidine 20 mg tablet 20 mg PO BID Qty: 14 0RF methylprednisolone [Medrol (Antoine)] 4 mg tablets,dose pack See Rx Instructions .ROUTE .COMPLEX Qty: 21 0RF Rx Instructions: orally per package directions diphenhydramine HCl 25 mg capsule 25 mg PO TID PRN (Reason: allergic reaction) Qty: 20 0RF No Action ezetimibe [Zetia] 10 mg tablet 10 mg PO DAILY Qty: 90 3RF (DME) ResMed AirSense 11 Auto See Rx Instructions .Route .MEDSUPPLY Rx Instructions: Pressure: 6-10 DME: [employer] Set up: 2.2 Referrals: Tobias Power MD [Primary Care Provider] - Stand Alone Forms: Patient Portal/API/Survey
== END 2024-09-02 10:02 | disposition home or self-care (01) ==
PROVIDERS: Emergency Provider Emergency Medicine; PCP Family Medicine
DX: L50.9 Urticaria, unspecified (principal)
CPT/HCPCS: 99281

== ENCOUNTER → 2024-09-09 08:10 | Outpatient (CLI) | payer MEDICARE, SELFPAY ==
[2024-09-09 09:10] LABS: Hemoglobin A1C% w Est Avg Glu 6.4 % (4.0-6.0)
[2024-09-09 09:44] LABS: Alanine Aminotransferase 36 IU/L (<35); Albumin 4.3 g/dL (3.5-5.0); Albumin Globulin Ratio 1.7 (1.0-2.8); Alkaline Phosphatase 105 U/L (38-126); Aspartate Aminotransferase 27 IU/L (14-36); BUN Creatinine Ratio 25.7 (6-22); Bilirubin Direct 0.2 mg/dL (0.0-0.4); Bilirubin Total 1.6 mg/dL (0.2-1.3); Blood Urea Nitrogen 19 mg/dL (7-17); Calcium 9.3 mg/dL (8.4-10.2); Carbon Dioxide 26 mmol/L (22-32); Chloride 103 mmol/L (98-107); Estimated Glomerular Filt Rate > 60 mL/min (>60); Globulin 2.6 g/dL (1.7-4.1); Glucose 147 mg/dL (80-110); HEMOLYSIS < 15 (0-50); Potassium 4.3 mmol/L (3.4-5.1); Sodium 137 mmol/L (137-145); Total Protein 6.9 g/dL (6.3-8.2); Triglycerides 122 mg/dL (35-150)
[2024-09-09 09:45] LABS: Cholesterol 195 mg/dL (140-199); HDL Cholesterol 54 mg/dL (40-60); LDL Cholesterol Calculated 117 mg/dL (<100)
[2024-09-09 10:06] LABS: TSH w/ Reflex to FT4 1.77 uIU/mL (0.47-4.68)
[2024-09-10 03:39] LABS: Apolipoprotein B 94 mg/dL (<90)
== END ==
PROVIDERS: PCP Family Medicine; Referring Provider Family Medicine; Visit Provider Family Medicine
DX: R73.03 Prediabetes (principal); E78.5 Hyperlipidemia, unspecified; R73.9 Hyperglycemia, unspecified; F41.8 Other specified anxiety disorders
CPT/HCPCS: 36415; 80053; 80061; 82172; 82248; 83036; 84443

== ENCOUNTER → 2024-10-14 13:38 | Outpatient (CLI) | payer MEDICARE, SELFPAY ==
--- NOTE | 2024-10-14 13:40 | DI.ECHO.S_ITS ---
[facility] +---------+ Hospital : : [address] : : [place] : : [id number] : : Phone: [phone] Echocardiogram Report + + :Name: LALITO CARTER Study Date: 10/14/2024 Height: 66 in : :[facility] ReadingLocation: Weight: 180 lb : : Gender: Female BSA: 1.9 m2 : :: 1945 Age: 79 yrs BP: 141/77 mmHg: :Reason For Study: WATKINS : :Ordering Physician: BLANCA, : :HUNG Performed By: Bird Guerrero : :Referring: HUNG TIWARI : + + Interpretation Summary Tehcnically difficult study. 1) Normal left ventricular thickness, size, wall motion, and systolic function (EF 65-70%). 2) Normal right ventricular size and function. 3) No significant valvular abnormalities. 4) No prior Echo available for comparison. Procedure: A two-dimensional transthoracic echocardiogram with color flow and Doppler was performed. A contrast injection of Definity was performed to improve assessment of LV function. The study quality was technically difficult. There is no prior echocardiogram noted for this patient. The patient was in normal sinus rhythm during the exam. Left Ventricle: The left ventricle is normal in size. There is normal left ventricular wall thickness. There is no ventricular septal defect visualized. The ejection fraction is estimated to be 65-70%. There are no focal wall motion abnormalities. Diastolic parameters suggest a relaxation abnormality of the left ventricle, consistent with probable normal filling pressures. Right Ventricle: The right ventricle is normal in size and function. Atria: The left atrial size is normal. Right atrial size is normal. There is no Doppler evidence for an interatrial shunt. Mitral Valve: The mitral valve leaflets appear normal. There is no evidence of stenosis, fluttering, or prolapse. There is no mitral regurgitation noted. Aortic Valve: The aortic valve is trileaflet. The aortic valve opens well. There is no aortic valve stenosis. No aortic regurgitation is present. Tricuspid Valve: The tricuspid valve is not well visualized, but is grossly normal. No tricuspid regurgitation. Pulmonary artery pressures cannot be estimated because of the lack of a measurable TR jet velocity. Pulmonic Valve: The pulmonic valve is not well seen, but is grossly normal. There is no pulmonic valvular regurgitation. Great Vessels: The aortic root is borderline dilated. The dimensions of the ascending aorta are normal. The pulmonary artery is not well visualized, but is probably normal size. The IVC is of normal diameter and collapses greater than 50% with a sniff. This suggests a low right atrial pressure of 3 mm Hg. Pericardium/ Pleura There is no pericardial effusion. There is no pleural effusion. MMode/2D Measurements & Calculations LVIDd: 4.4 cm LVOT diam: 1.9 cm LVIDs: 2.6 cm Ao root diam: 3.7 cm FS: 42.2 % asc Aorta Diam: 3.3 cm EPSS: 0.45 cm IVSd: 1.1 cm LVPWd: 1.0 cm LV bertrand. diameter/BSA (cm/m^2): 2.3 LV sys. diameter/BSA (cm/m^2): 1.3 LA A2 area: 21.4 cm2 RA long axis: 4.0 cm LA A4 area: 18.4 cm2 RA area: 11.6 cm2 LA length (vol): 5.4 cm RA vol: 28.5 ml LA vol: 61.9 ml RA : 14.9 ml/m2 LA vol index: 32.4 ml/m2 IVC diam: 1.3 cm RVD1 (basal): 2.9 cm RVD2 (mid): 2.4 cm TAPSE: 2.2 cm Doppler Measurements & Calculations Ao V2 max: 155.5 cm/sec LVOT Max Luis: 123.9 cm/sec Ao V2 mean: 108.3 cm/sec LV V1 max P.1 mmHg Ao max P.7 mmHg LV V1 VTI: 33.5 cm Ao mean P.3 mmHg VANESSA(I,D): 2.8 cm2 Ao V2 VTI: 35.0 cm VANESSA(V,D): 2.3 cm2 sev ratio: 0.96 VANESSA indexed to BSA (cm^2/m^2): 1.5 MV E max luis: 56.9 cm/sec PA V2 max: 100.0 cm/sec MV A max luis: 75.0 cm/sec PA V2 mean: 67.4 cm/sec MV E/A: 0.76 PA mean P.1 mmHg Med Peak E' Luis: 4.3 cm/sec PA pr(Accel): 55.0 mmHg E/E' med: 13.2 Lat Peak E' Luis: 6.0 cm/sec E/E' lat: 9.5 E/e' average: 11.3 MV dec time: 0.23 sec SVLVOT): 98.2 ml Reading Physician:01:07 PM
--- NOTE | 2024-10-16 08:21 | DI.NM.S_ITS ---
DATE OF SERVICE: 10/14/2024 EXERCISE TREADMILL STRESS TEST PROCEDURE: Exercise treadmill stress test without imaging. ORDERING PROVIDER: Dr. Christopher Tiwari. INDICATIONS: The patient is a 79-year-old female with hyperlipidemia, exertional dyspnea, and atypical chest pain. FINDINGS: 1. The patient was able to exercise for 4 minutes 32 seconds on a standard Romie protocol, suggesting moderately impaired exercise capacity with an SHANIQUE of +11%, achieving 7.0 METs. 2. She had a normal heart rate response to exercise, achieving a maximum heart rate of 146 bpm (102% of her predicted maximum). She had a mild hypertensive blood pressure response with a resting blood pressure of 148/90, increasing to a maximum of 204/82. 3. She had moderate exertional dyspnea but no chest discomfort or other anginal symptoms. 4. Her resting ECG shows sinus rhythm at [address] segments. There are no significant ST-segment shifts or arrhythmias with stress. IMPRESSION: 1. Normal exercise treadmill stress test for ischemia. 2. Moderately impaired exercise capacity without angina or arrhythmias. Elle Cantu - RS/fn/MA doc#: [id number]/job#: [id number] dd: 10/14/2024 17:15:00 dt: 10/14/2024 18:36:00 DICTATING MD/COPIES TO: Peter Hoover MD; Dr. Christophre Tiwari COPIES MNE: MYRIAM; ; Dr. Christopher Tiwair
== END ==
PROVIDERS: PCP Family Medicine; Referring Provider Internal Medicine Cardiovascular Disease; Visit Provider Internal Medicine Cardiovascular Disease
DX: R06.09 Other forms of dyspnea (principal); R07.89 Other chest pain; E78.5 Hyperlipidemia, unspecified
CPT/HCPCS: 93017; C8929; Q9957

== ENCOUNTER → 2025-01-27 10:18 | Outpatient (CLI) | payer MEDICARE, SELFPAY ==
[2025-01-27 11:20] LABS: Add Manual Diff / Slide Review NO; Hematocrit 43.1 % (36-46); Hemoglobin 14.5 g/dL (12.0-16.0); Lymphocytes Absolute Auto 1700 /uL (1100-4500); Mean Corpuscular HGB Conc 33.7 % (30-36); Mean Corpuscular Hemoglobin 28.7 PG (26-34); Mean Corpuscular Volume 85.0 fL (80-100); Platelet Count 235 X10^3/uL (150-400)
[2025-01-27 11:53] LABS: Alanine Aminotransferase 24 IU/L (<35); Albumin 4.4 g/dL (3.5-5.0); Albumin Globulin Ratio 1.6 (1.0-2.8); Alkaline Phosphatase 93 U/L (38-126); Blood Urea Nitrogen 17 mg/dL (7-17); Calcium 9.5 mg/dL (8.4-10.2); Carbon Dioxide 27 mmol/L (22-32); Chloride 104 mmol/L (98-107); Estimated Glomerular Filt Rate > 60 mL/min (>60); Globulin 2.7 g/dL (1.7-4.1); Glucose 128 mg/dL (70-99); HEMOLYSIS < 15 (0-50); Potassium 4.2 mmol/L (3.4-5.1); Sodium 139 mmol/L (137-145); Total Protein 7.1 g/dL (6.3-8.2)
[2025-01-27 11:59] LABS: Hemoglobin A1C% w Est Avg Glu 7.0 % (4.0-6.0)
== END ==
PROVIDERS: PCP Family Medicine; Referring Provider Family Medicine; Visit Provider Family Medicine
DX: R73.03 Prediabetes (principal); R73.9 Hyperglycemia, unspecified; E78.5 Hyperlipidemia, unspecified; L50.9 Urticaria, unspecified
CPT/HCPCS: 36415; 80053; 83036; 85025

== ENCOUNTER → 2025-02-19 09:38 | Outpatient (CLI) | payer MEDICARE, SELFPAY ==
--- NOTE | 2025-02-19 09:39 | DI.RAD.S_ITS ---
PROCEDURE: XR DEXA AXIAL SKELETON INDICATIONS: osteoporosis screening COMPARISON: [facility], CR, XR DEXA AXIAL SKELETON, 01/09/2022, 15:06. FINDINGS: Lumbar Spine: Bone mineral density 0.751 (previously 0.726) g/cm2, T score -2.7 (previously -2.9). Left Femoral Neck: Bone mineral density 0.623 (previously 0.666) g/cm2, T score -2.0 (previously -1.6). Left Hip: Bone mineral density 0.744 (previously 0.774) g/cm2, T score -1.6 (previously -1.4). Fracture Risk Calculation (when applicable): 10-year fracture risk of a major osteoporotic fracture 26 percent and of a hip fracture 16 percent. (T score greater or equal to -1.0 to: NORMAL) (T score from -1.1 to -2.4: OSTEOPENIA) (T score less than or equal to -2.5: OSTEOPOROSIS) IMPRESSION: Osteoporosis--- recommend repeat DEXA in 2 years or less for reassessment of response to treatment. Follow-up guidelines as follows: Osteoporosis: Consider a repeat DEXA and Vertebral Fracture Assessment (VFA) exam in 2 years or sooner if medically necessary, to reassess this patient's status. Osteopenia: Consider a repeat DEXA in 2-3 years to reassess this patient's status, or if there is a new clinical indication. Normal: Consider a repeat DEXA in 5 years or sooner, or if there is a new clinical indication. All treatment decisions require clinical judgment and consideration of individual patient factors, including patient preferences, comorbidities, previous drug use, risk factors not captured in the FRAX model (e.g., frailty, falls, vitamin D deficiency, increased bone turnover, interval significant decline in bone density ) and possible under- or over-estimation of fracture risk by FRAX. In addition, the NOF Guide recommends that FDA-approved medical therapies be considered in postmenopausal women and men age >= 50 years with a: * Hip or vertebral (clinical or morphometric) fracture * T-score of <=-2.5 at the spine or hip * Ten-year fracture probability by FRAX of >= 3% for hip fracture or >=20% for major osteoporotic fracture. Dictated by: Michele Jett M.D. on 02/19/2025 at 19:52 Approved by: Michele Jett M.D. on 02/19/2025 at 19:55
== END ==
PROVIDERS: PCP Family Medicine; Referring Provider Family Medicine; Visit Provider Family Medicine
DX: M81.0 Age-related osteoporosis without current pathological fracture (principal)
CPT/HCPCS: 77080